=== PATIENT | female | born 1950 | race Caucasian/White ===

== ENCOUNTER 2020-06-02 16:19 | Emergency (ER) | payer OTHER ==
[~2020-06-02] VITALS: Ht 149.9 cm; Wt 45.8 kg
[2020-06-02] MEDS ORDERED: CLONAZEPAM1 MG (16:34)
[2020-06-02] MEDS ORDERED: FAMCICLOVIR500 MG PO (17:15)
[2020-06-02] MEDS ORDERED: KETO10TA2 PO (17:15)
== END 2020-06-02 17:33 | disposition home or self-care (01) ==
LOC: ER 16:19
DX: B02.9 Zoster without complications (principal)